=== PATIENT | female | born 1985 | race African-American/Black ===

== ENCOUNTER 2016-12-19 12:06 | Emergency (ER) | payer SELFPAY ==
[~2016-12-19] VITALS: Ht 170.2 cm; Wt 81.0 kg
[2016-12-19] MEDS ORDERED: ACETAMINOPHEN 325 MG TABLET PO ONE (17:00)
[2016-12-19 17:31] VITALS: BP 128/79
== END 2016-12-19 17:41 | disposition home or self-care (01) ==
LOC: EMS 12:08
DX: S60.011A Contusion of right thumb without damage to nail, initial encounter (principal); S90.111A Contusion of right great toe without damage to nail, initial encounter; D17.0 Benign lipomatous neoplasm of skin and subcutaneous tissue of head, face and neck; F17.210 Nicotine dependence, cigarettes, uncomplicated; X58.XXXA Exposure to other specified factors, initial encounter; Y93.89 Activity, other specified; Y92.89 Other specified places as the place of occurrence of the external cause; Y99.8 Other external cause status
CPT/HCPCS: 99284